=== PATIENT | male | born 1960 | race Caucasian/White ===

== ENCOUNTER 2017-09-03 20:52 | Emergency (ER) | payer BC ==
[2017-09-03] MEDS: NS 1,000 ML IV (21:03)
[2017-09-03] MEDS: ONDANSETRON 4MG/2ML VIAL (J2405) IV (21:03)
[2017-09-03] MEDS: MORPHINE 4 MG/ML 1ML VIAL/SYRINGE (J2270) IV ×2 (21:04→21:29)
[2017-09-03] MEDS: KETOROLAC 30 MG/ML VIAL (J1885) IV (21:05)
[2017-09-03 21:20] LABS: BASO # 0.1 10^3/uL (0.0-0.2); BASO % 0.6 % (0.0-1.0); EOS # 0.2 10^3/uL (0.0-0.50); EOS % 1.3 % (0.0-3.0); HEMATOCRIT 43.2 % (42.0-52.0); HEMOGLOBIN 15.2 g/dl (13.5-17.5); IMMATURE GRANULOCYTE % 0.3 % (0-3.0); LYMPH # 3.6 10^3/uL (1.5-4.5); LYMPH % 28.1 % (24.0-44.0); MEAN CORPUSCULAR HEMOGLOBIN 31.4 pg (27.0-33.0); MEAN CORPUSCULAR HGB CONC 35.2 g/dl (32.0-36.5); MEAN CORPUSCULAR VOLUME 89.3 fl (80.0-96.0); MONO # 1.3 10^3/uL (0.0-0.8); MONO % 9.8 % (0.0-5.0); NEUTROPHILS # 7.7 10^3/uL (1.8-7.7); NEUTROPHILS % 59.9 % (36.0-66.0); PLATELET COUNT, AUTOMATED 238 10^3/uL (150-450); RED BLOOD COUNT 4.84 10^6/uL (4.30-6.10); RED CELL DISTRIBUTION WIDTH 11.9 % (11.5-14.5); WHITE BLOOD COUNT 12.8 10^3/uL (4.0-10.0)
[2017-09-03 21:46] LABS: ALBUMIN/GLOBULIN RATIO 1.21 (1.00-1.93); ALKALINE PHOSPHATASE 100 U/L (45-117); ALT/SGPT 30 U/L (12-78); ANION GAP 11 MEQ/L (8-16); AST/SGOT 30 U/L (7-37); BILIRUBIN,DIRECT 0.2 MG/DL (0.0-0.2); BILIRUBIN,TOTAL 0.6 MG/DL (0.2-1.0); BLOOD UREA NITROGEN 26 MG/DL (7-18); CALCIUM LEVEL 8.9 MG/DL (8.5-10.1); CARBON DIOXIDE LEVEL 24 MEQ/L (21-32); CHLORIDE LEVEL 103 MEQ/L (98-107); CREATININE FOR GFR 1.46 MG/DL (0.70-1.30); GLOMERULAR FILTRATION RATE 53.6 (>56); GLUCOSE, FASTING 109 MG/DL (70-100); LIPASE 171 U/L (73-393); POTASSIUM SERUM 3.4 MEQ/L (3.5-5.1); SODIUM LEVEL 138 MEQ/L (136-145); TOTAL PROTEIN 7.3 GM/DL (6.4-8.2)
[2017-09-03 22:08] LABS: CALCIUM OXALATE CRYSTALS RFX SMALL; KETONE, URINE AUTO RFX 1+ mg/dL (NEGATIVE); LEUKOCYTE ESTERASE UR AUTO RFX NEGATIVE (NEGATIVE); MUCUS, URINE RFX SMALL (NEGATIVE); NITRITE, URINE AUTO RFX NEGATIVE (NEGATIVE); RBC, URINE AUTO RFX 2 /HPF (0-3); SPECIFIC GRAVITY UR AUTO RFX 1.026 (1.002-1.035); SQUAM EPITHELIAL CELL UR AURFX 0 /HPF (0-6); WBC, URINE AUTO RFX 1 /HPF (0-3)
[2017-09-03] MEDS: ONDANSETRON 4 MG TAB (S0181) PO (22:15)
[2017-09-03] MEDS: OXYCODONE/APAP 5MG/325MG(BULK FOR ED) 1 TABLET PO (22:32)
== END 2017-09-03 22:53 | disposition home or self-care (01) ==
LOC: M ED 20:52
DX: N20.1 Calculus of ureter (principal); R11.0 Nausea; G47.9 Sleep disorder, unspecified; Z91.040 Latex allergy status; Z79.899 Other long term (current) drug therapy
CPT/HCPCS: J2270

== ENCOUNTER → 2018-05-16 | Outpatient (CLI) | payer BC ==
[~2018-05-16] MED LIST: PERC5TAB12 PO; PERCOCET PO; SERT-138 PO; ZOFR4TAB14 PO
--- NOTE | 2018-05-16 13:46 | REP ---
Chest two views HISTORY: Cough Comparison: None The lungs are clear. The heart is normal in size. The pulmonary vasculature is normal in appearance. The bony structure is intact. IMPRESSION: No acute disease. Electronically Signed by Alfa Lynn MD 05/16/2018 01:38 P
== END ==
LOC: M RAD 11:31
PROVIDERS: ATTEND Emergency Medicine
DX: R05 Cough (principal)

== ENCOUNTER → 2020-05-11 | Outpatient (CLI) | payer BC | LOC: M LABSMTC 10:21 | PROVIDERS: ATTEND Anesthesiology | DX: Z20.828 Contact with and (suspected) exposure to other viral communicable diseases (principal) ==

== ENCOUNTER 2020-05-16 06:31 | Day surgery (SDC) | payer BC ==
[~2020-05-16] VITALS: Ht 182.9 cm; Wt 84.8 kg
[2020-05-16] MEDS ORDERED: POVIDONE-IODINE 5% OPHTH PREP SOL 30ML As Ordered ONE (06:35)
[2020-05-16] MEDS ORDERED: DUOVISC (0.50ML VISCOAT/0.55ML PROVISC) OPHTH KIT As Ordered ONE (06:36)
[2020-05-16] MEDS ORDERED: CEFUROXIME 1MG/0.1ML INTRACAMERAL INJ As Ordered ONE (06:36)
[2020-05-16] MEDS ORDERED: PROPARACAINE 0.5% OPHTH SOL 15ML OD ONE (07:00)
[2020-05-16] MEDS ORDERED: TROPICAMIDE 1% OPHTH SOLN 2ML OD ONE (07:00)
[2020-05-16] MEDS ORDERED: OFLOXACIN 0.3 % (OCUFLOX) OPTH SOL 5ML OD ONE (07:00)
[2020-05-16] MEDS ORDERED: PHENYLEPHRINE 2.5% OPHTH SOL 2ML OD ONE (07:00)
[2020-05-16] MEDS ORDERED: BSS IRR 500ML/OMIDRIA 4ML IRR BAG (OR ONLY) As Ordered ONE (07:29)
[2020-05-16] MEDS ORDERED: fentaNYL 100 MCG/2 ML INJECTION (J3010) As Ordered ONE (07:43)
[2020-05-16] MEDS ORDERED: MIDAZOLAM INJ 2MG/2ML VIAL (J2250 PER 1MG) As Ordered ONE (07:43)
[2020-05-16 08:20] VITALS: BP 121/68
--- NOTE | 2020-05-17 09:26 | RO ---
OPERATIVE NOTE DATE OF OPERATION: 05/16/2020 PREOPERATIVE DIAGNOSIS: 1. Visually significant nuclear sclerotic cataract, right eye. POSTOPERATIVE DIAGNOSIS: 1. Visually significant nuclear sclerotic cataract, right eye. PROCEDURE: 1. Cataract extraction with use of phacoemulsification, and placement of intraocular lens, TFNT00, 10.5 D, right eye, with the use of PanOptix trifocal lens and intraoperative aberrometry. SURGEON: Josse Lopez DO ANESTHESIA: Local (Omidria with MAC) COMPLICATIONS: None POSTOPERATIVE CONDITION: Stable INDICATIONS FOR SURGERY: 1. Blurred vision affecting patient's activities of daily living. DESCRIPTION OF PROCEDURE: The patient was seen in the preoperative area and properly identified. The correct operative eye was identified and marked. The patient received topical anesthetic, antibiotics, and topical dilating drops. The patient was then transferred to the operating room. The correct side was re-identified and a time-out was performed. The eye was prepped and draped in a sterile fashion. The eyelids were isolated with Tegaderm tape and the lids were held open with an adjustable speculum. A 1.0mm paracentesis incision was made. Omidria was then injected into the anterior chamber. Viscoelastic was then injected into the anterior chamber through the paracentesis. Using a 2.4mm sharp-tipped keratome, the anterior chamber was entered via a temporal clear cornea incision. A continuous curvilinear capsulorrhexis was created with Utrata forceps. Hydrodissection was performed with BSS on a blunt cannula until the nucleus was able to rotate freely. The crystalline lens was phacoemulsified and aspirated. Irrigation/aspiration was used to remove the cortical material Cohesive viscoelastic was placed into the capsular bag to deepen it. The implant was placed into the capsular bag and allowed to unfold. Placement was confirmed by visualizing the anterior capsulorrhexis. Irrigation/aspiration was used to remove the viscoelastic. The clear corneal incision was hydrated with BSS on a blunt cannula. The lens was well positioned. Intracameral antibiotic was injected into the anterior chamber. The incisions were then tested for leaks and found to be negative. The eye was then palpated for appropriate pressure and adjusted accordingly with BSS. The eyelid speculum was then carefully removed. A shield was placed over the eye. The patient tolerated the procedure well and was discharge to the recovery unit in a stable condition.
== END 2020-05-16 08:24 | disposition home or self-care (01) ==
LOC: M SDC 06:31
PROVIDERS: ATTEND Ophthalmology
DX: H25.11 Age-related nuclear cataract, right eye (principal); F32.9 Major depressive disorder, single episode, unspecified; Z79.899 Other long term (current) drug therapy; Z91.040 Latex allergy status
CPT/HCPCS: 66984; 92015; J1097; J2250; J3010; L8699

== ENCOUNTER → 2020-06-08 | Outpatient (CLI) | payer BC ==
[~2020-06-08] MED LIST changes: +ZOLO100T PO
== END ==
LOC: M LABSMTC 11:48
PROVIDERS: ATTEND Anesthesiology
DX: Z01.812 Encounter for preprocedural laboratory examination (principal); Z20.822 Contact with and (suspected) exposure to COVID-19

== ENCOUNTER 2020-06-13 06:20 | Day surgery (SDC) | payer BC ==
[~2020-06-13] VITALS: Ht 182.9 cm; Wt 81.6 kg
[2020-06-13] MEDS ORDERED: POVIDONE-IODINE 5% OPHTH PREP SOL 30ML As Ordered ONE (06:39)
[2020-06-13] MEDS ORDERED: DUOVISC (0.50ML VISCOAT/0.55ML PROVISC) OPHTH KIT As Ordered ONE ×2 (06:39→08:24)
[2020-06-13] MEDS ORDERED: CEFUROXIME 1MG/0.1ML INTRACAMERAL INJ As Ordered ONE (06:40)
[2020-06-13] MEDS ORDERED: TROPICAMIDE 1% OPHTH SOLN 2ML OS ONE (07:00)
[2020-06-13] MEDS ORDERED: PROPARACAINE 0.5% OPHTH SOL 15ML OS ONE (07:00)
[2020-06-13] MEDS ORDERED: OFLOXACIN 0.3 % (OCUFLOX) OPTH SOL 5ML OS ONE (07:00)
[2020-06-13] MEDS ORDERED: PHENYLEPHRINE 2.5% OPHTH SOL 2ML OS ONE (07:00)
[2020-06-13] MEDS ORDERED: fentaNYL 100 MCG/2 ML INJECTION (J3010) As Ordered ONE (07:09)
[2020-06-13] MEDS ORDERED: MIDAZOLAM INJ 2MG/2ML VIAL (J2250 PER 1MG) As Ordered ONE (07:10)
[2020-06-13] MEDS ORDERED: BSS IRR 500ML/OMIDRIA 4ML IRR BAG (OR ONLY) As Ordered ONE (07:19)
[2020-06-13 08:55] VITALS: BP 143/73
== END 2020-06-13 09:13 | disposition home or self-care (01) ==
LOC: M SDC 06:20
PROVIDERS: ATTEND Ophthalmology
DX: H25.12 Age-related nuclear cataract, left eye (principal); F32.9 Major depressive disorder, single episode, unspecified; Z79.899 Other long term (current) drug therapy; Z91.040 Latex allergy status
CPT/HCPCS: 66984; 92015; J1097; J2250; J3010; L8699

== ENCOUNTER 2020-06-26 19:12 | Inpatient (IN) | payer BC ==
[~2020-06-26] VITALS: Ht 182.9 cm; Wt 84.0 kg
[2020-06-26 19:48] LABS: VENOUS BASE EXCESS -1.5 (-2.0-2.0); VENOUS HCO3 23.5 MEQ/L (23.0-27.0); VENOUS O2 SATURATION 73.9 % (60.0-80.0); VENOUS PARTIAL PRESSURE CO2 40.9 mmHg (38.0-50.0); VENOUS PARTIAL PRESSURE O2 40.1 mmHg (30.0-50.0); VENOUS PH 7.378 UNITS (7.330-7.430); VENOUS STANDARD HCO3 22.6 MEQ/L; VENOUS TOTAL CO2 24.8 MEQ/L (24.0-28.0)
[2020-06-26 19:51] LABS: BASO % 0.3 % (0.0-1.0); EOS # 0.2 10^3/uL (0.0-0.5); EOS % 1.6 % (0.0-3.0); HEMATOCRIT 45.3 % (42.0-52.0); HEMOGLOBIN 15.6 g/dl (13.5-17.5); LYMPH # 1.4 10^3/uL (1.5-5.0); LYMPH % 11.7 % (24.0-44.0); MEAN CORPUSCULAR HEMOGLOBIN 31.5 pg (27.0-33.0); MEAN CORPUSCULAR HGB CONC 34.4 g/dl (32.0-36.5); MEAN CORPUSCULAR VOLUME 91.3 fl (80.0-96.0); MONO % 8.5 % (2.0-8.0); NEUTROPHILS # 9.4 10^3/uL (1.5-8.5); NEUTROPHILS % 77.6 % (36.0-66.0); PLATELET COUNT, AUTOMATED 198 10^3/uL (150-450); RED BLOOD COUNT 4.96 10^6/uL (4.30-6.10); WHITE BLOOD COUNT 12.1 10^3/uL (4.0-10.0)
[2020-06-26 20:02] LABS: PROTHROMBIN TIME 13.4 SECONDS (12.5-14.3)
[2020-06-26 20:18] LABS: ALBUMIN 3.6 GM/DL (3.2-5.2); ALT/SGPT 23 U/L (12-78); BILIRUBIN,DIRECT 0.2 MG/DL (0.0-0.2); BILIRUBIN,TOTAL 0.4 MG/DL (0.2-1.0); BLOOD UREA NITROGEN 23 MG/DL (7-18); CALCIUM LEVEL 8.8 MG/DL (8.5-10.1); CARBON DIOXIDE LEVEL 28 MEQ/L (21-32); CHLORIDE LEVEL 105 MEQ/L (98-107); CK-MB VALUE MASS 2.8 NG/ML (<3.6); CPK CREATINE PHOSPHOKINASE 102 U/L (39-308); CREATININE FOR GFR 1.14 MG/DL (0.70-1.30); GLOMERULAR FILTRATION RATE > 60.0 (>56); GLUCOSE, FASTING 117 MG/DL (70-100); MB/CK RELATIVE INDEX 2.75 (< OR =4); NT-PRO BNP 717 PG/ML (<125); POTASSIUM SERUM 3.7 MEQ/L (3.5-5.1); SODIUM LEVEL 139 MEQ/L (136-145); TOTAL PROTEIN 7.4 GM/DL (6.4-8.2); TROPONIN I 0.16 NG/ML (< 0.10)
[2020-06-26 20:30] LABS: D-DIMER QUANT > 4000 ng/ml (<500)
--- NOTE | 2020-06-26 20:30 | REPVR ---
PROCEDURE INFORMATION: Exam: XR Chest Exam date and time: 06/26/2020 7:50 PM Age: 59 years old Clinical indication: Cough; Additional info: Dyspnea/cough TECHNIQUE: Imaging protocol: XR of the chest Views: 2 views. COMPARISON: CR Chest, 2 view PA, Lat 05/16/2018 11:37 AM FINDINGS: Lungs: Unremarkable. No consolidation. Pleural spaces: Unremarkable. No pleural effusion. No pneumothorax. Heart/Mediastinum: Unremarkable. No cardiomegaly. Bones/joints: Unremarkable. IMPRESSION: No acute findings. Electronically signed by: Uche Elizabeth On 06/26/2020 20:30:16 PM
[2020-06-26] MEDS: COMBIVENT RESPIMAT 100-20MCG INHALER 4GM INH SCH ×3 (20:43→21:20)
[2020-06-26 20:50] LABS: RSV AMPLIFICATION NEGATIVE (NEGATIVE)
[2020-06-26] MEDS ORDERED: ISOVUE-370 76% 100ML VIAL As Ordered ONE (21:08)
[2020-06-26] MEDS ORDERED: APIXABAN 5 MG TAB (ELIQUIS) PO ONE (21:35)
[2020-06-26] MEDS ORDERED: ENOXAPARIN 100MG/1ML SYRINGE (J1650 PER 10MG) SC ONE (21:35)
--- NOTE | 2020-06-26 21:39 | REPVR ---
PROCEDURE INFORMATION: Exam: CT Angiography Chest With Contrast Exam date and time: 06/26/2020 9:18 PM Age: 59 years old Clinical indication: Shortness of breath; Additional info: SOB TECHNIQUE: Imaging protocol: Computed tomographic angiography of the chest with contrast. 3D rendering (Not supervised by radiologist): MIP and/or 3D reconstructed images were created by the technologist. Radiation optimization: All CT scans at this facility use at least one of these dose optimization techniques: automated exposure control; mA and/or kV adjustment per patient size (includes targeted exams where dose is matched to clinical indication); or iterative reconstruction. Contrast material: [id number]; Contrast volume: 75 ml; Contrast route: INTRAVENOUS (IV); COMPARISON: CR Chest, 2 view PA, Lat 06/26/2020 7:38 PM FINDINGS: Pulmonary arteries: Filling defect in bilateral lower lobe segmental and subsegmental pulmonary arteries and in the multiple right upper lobe and 1 of the left upper lobe segmental pulmonary artery representing acute pulmonary embolism. Straightening of the interventricular septum suggestive of pulmonary strain. Aorta: Unremarkable. No aortic aneurysm. No aortic dissection. Lungs: Unremarkable. No consolidation. No masses. Pleural spaces: Unremarkable. No pneumothorax. No pleural effusion. Heart: Unremarkable. No cardiomegaly. No pericardial effusion. Lymph nodes: Unremarkable. No enlarged lymph nodes. Bones/joints: Unremarkable. No acute fracture. Soft tissues: Unremarkable. IMPRESSION: Acute pulmonary embolism multiple bilateral upper lobe and lower lobe segmental and subsegmental pulmonary arteries. Straightening of the interventricular septum suggestive of ventricular strain. Electronically signed by: Uche Elizabeth On 06/26/2020 21:39:23 PM
[2020-06-26 21:48] LABS: PARTIAL THROMBOPLASTIN TIME 29.5 SECONDS (24.2-38.5)
[2020-06-26] MEDS ORDERED: MOM 30ML SUSPENSION UDC PO PRN (22:05)
[2020-06-26] MEDS ORDERED: MAALOX 30 ML SUSP *UDC PO PRN (22:05)
[2020-06-26] MEDS ORDERED: ACETAMINOPHEN TAB 650MG DOSE (2X325MG) PO PRN (22:05)
[2020-06-26] MEDS ORDERED: LOTE8.3D OS (22:30)
[2020-06-26] MEDS ORDERED: BROM0.07 OS (22:30)
--- NOTE | 2020-06-26 22:44 | REPVR ---
PROCEDURE INFORMATION: Exam: US Duplex Lower Extremity Veins, Bilateral Exam date and time: 06/26/2020 10:30 PM Age: 59 years old Clinical indication: Other: Pe, SOB TECHNIQUE: Imaging protocol: Real-time duplex ultrasound of the extremities with 2-D baez scale, color Doppler flow and spectral waveform analysis with image documentation. Complete exam focused on the bilateral lower extremity veins. COMPARISON: No relevant prior studies available. FINDINGS: Right deep veins: No flow in the femoral vein common femoral vein partially occluded. Popliteal vein has normal compressibility and flow. Right superficial veins: Saphenofemoral junction is patent without thrombus. Left deep veins: Unremarkable. The common femoral, femoral, proximal profunda femoral and popliteal veins are patent without thrombus. Normal Doppler waveforms. Normal compressibility and/or augmentation response. Left superficial veins: Saphenofemoral junction is patent without thrombus. Soft tissues: Unremarkable. IMPRESSION: Right: DVT of the right common femoral and femoral vein. Left: Unremarkable. Electronically signed by: Uche Elizabeth On 06/26/2020 22:44:05 PM
[2020-06-26 23:46] LABS: CREATININE FOR GFR 1.11 MG/DL (0.70-1.30); GLOMERULAR FILTRATION RATE > 60.0 (>56); NT-PRO BNP 795 PG/ML (<125)
--- NOTE | 2020-06-26 23:59 | HPEPDOC ---
[facility] Medical History & Physical Date of Admission Jun 26, 2020 Date of Service: Jun 26, 2020 Other Provider Keanu Yoder MD Attending Physician: CAROLINA ROWLAND MD History and Physical TIME OF SERVICE: 1038pm CHIEF COMPLAINT: dyspnea HISTORY OF PRESENT ILLNESS: For the last 3 or 4 weeks has been experiencing shortness of breath off and on. It was though that he might have reactive air way disease, therefore, he was referred to [facility] for evaluation. Over the last 2 or 3 weeks he noticed right leg swelling which he attributed to an old injury acting up. He is normally very active and runs marathons but over the last 2 days his shortness of breath has been much worse to the point that he has had difficulties moving boxes. He has a portable pulse oximeter; he put it on to check his O2 sats and noticed that they dropped while he was climbing stairs. CT of the chest confirmed bilateral PE with flattening of the intraventricular septum. BENITA Bryant discussed the case with Drs. Anderson & Kelvin (bc of the elevated troponin). REVIEW OF SYSTEMS: 12-point review of systems negative except as listed in HPI PAST MEDICAL/ SURGICAL HISTORY: Chronic HTN Bilateral cataract surgeries SOCIAL HISTORY: He doesnt smoke FAMILY HISTORY: Reviewed n/a ALLERGIES: Please see below. HOME MEDICATIONS: Please see below. PHYSICAL EXAMINATION: Vital Signs Date Time Temp Pulse Resp B/P (MAP) Pulse Ox O2 Delivery O2 Flow Rate FiO2 06/26/20 19:14 97.8 76 18 150/90 (110) 96 Room Air GENERAL APPEARANCE: well nourished and developed /NAD HEENT: EOMI CARDIOVASCULAR: RRR/NMRG / no LE edema LUNGS: not using accessory muscles/ CTAB on RA MUSCULOSKELETAL: JAMES x4 / RLE looks slightly larger than LLE INTEGUMENT: extremities not cyanotic NEUROLOGICAL: speech not dysarthric PSYCHIATRIC: A&O x 3 / able to understand and follow all commands LABORATORY DATA: 06/26/20 19:39 06/26/20 23:07 Immature Granulocyte % (Auto) 0.3, Neutrophils (%) (Auto) 77.6H, Lymphocytes (%) (Auto) 11.7L, Monocytes (%) (Auto) 8.5H, Eosinophils (%) (Auto) 1.6, Basophils (%) (Auto) 0.3, Neutrophils # (Auto) 9.4H, Lymphocytes # (Auto) 1.4L, Monocytes # (Auto) 1.0H, Eosinophils # (Auto) 0.2, Basophils # (Auto) 0.0, Nucleated Red Blood Cells % (auto) 0.0, Prothrombin Time 13.4, Prothromb Time International Ratio 1.00, Activated Partial Thromboplast Time 29.5, D-Dimer, Quantitative > 4000H, Blood Gas Bicarbonate Standard 22.6, Venous Blood pH 7.378, Venous Blood Partial Pressure CO2 40.9, Venous Blood Partial Pressure O2 40.1, Venous Blood Total Carbon Dioxide 24.8, Venous Blood HCO3 23.5, Venous Blood Oxygen Saturation 73.9, Venous Blood Base Excess -1.5, Anion Gap 6L, Glomerular Filtration Rate > 60.0, Calcium Level 8.8, Total Bilirubin 0.4, Direct Bilirubin 0.2, Aspartate Amino Transf (AST/SGOT) 18, Alanine Aminotransferase (ALT/SGPT) 23, Alkaline Phosphatase 130H, Total Creatine Kinase 102, Creatine Kinase MB 2.8, Creatine Kinase MB Relative Index 2.75, Troponin I 0.16H, RY-Ilx-M-Type Natriuretic Peptide 717H, Total Protein 7.4, Albumin 3.6, Albumin/Globulin Ratio 0.9, Glomerular Filtration Rate > 60.0, KE-Mno-I-Type Natriuretic Peptide 795H IMAGING: Chest xray IMPRESSION: No acute findings. CTA chest IMPRESSION: Acute pulmonary embolism multiple bilateral upper lobe and lower lobe segmental and subsegmental pulmonary arteries. Straightening of the interventricular septum suggestive of ventricular strain. BLE US IMPRESSION: Right: DVT of the right common femoral and femoral vein. Left: Unremarkable. MICROBIOLOGY: Coronavirus (COVID-19)(PCR) NEGATIVE, Influenza Type A (RT-PCR) NEGATIVE, Influenza Type B (RT-PCR) NEGATIVE, Respiratory Syncytial Virus (PCR) NEGATIVE ASSESSMENT: is a 59 yr old w a hx of HTN who presented w acute worsening of his shortness of breath along with RLE swelling; he will be admitted for management of submassive PE. PLAN: 1 Submassive Pulmonary Embolism with RLE DVT This appears to be unprovoked He is hemodynamically stable but also has right ventricular strain on CT specifically flattening of the intraventricular septum, elevated BNP and elevated troponin His ADINA Score is 4 = stage 2 = intermediate risk for complications and mortality Plan: bc his ADINA score is 4 we will admit to step down for closer monitoring / telemetry / bc he has a submassive PE he is not a candidate for a DOAC, I will start heparin drip for now/ pending Echo to confirm that the RV/LV ratio is >0.9 / f/u w , the day time team may also consider IR consult to discuss if he is candidate for thrombolysis to / trend trops / f/u VBG / he may need an ambulatory O2 eval prior to discharge / he will need to be referred to [facility] on an out patient basis to complete the hypercoagulable work-up 2 Mild HTN Plan: day time team may consider starting an anti-hypertensive DVT n/a on treatment Dispo: home after at least 2 midnights stay Home Medications Scheduled Apixaban (Eliquis) 5 Mg Tablet, 10 MG PO BID Apixaban (Eliquis) 5 Mg Tablet, 5 MG PO BID Start taking 5 mg twice a day of eliquis after 7 days of 10 mg twice a day of Eliquis Bromfenac Sodium (Bromsite) 0.075% 5ML Drops, 1 DROP OS BID Loteprednol Etabonate (Eysuvis) 0.25 % Drops.susp, 1 DROP OS BID Sertraline Hcl (Zoloft) 100 Mg Tablet, 150 MG PO DAILY Allergies Coded Allergies: latex (Verified Allergy, Intermediate, RASH LOCALIZED, 05/09/20) A-FIB/CHADSVASC A-FIB History Current/History of A-Fib/PAF?: No Current PO Anticoag Therapy: No CAROLINA ROWLAND MD Jun 26, 2020 23:59
[2020-06-27] VITALS (15 sets, daily range): BP systolic 109–141; BP diastolic 62–82; O2SAT 93–96
[2020-06-27] MEDS ORDERED: HEPARIN DRIP 25,000 UNITS in IV 1 EA IV SCH (02:24)
[2020-06-27] MEDS ORDERED: HEPARIN SOD (PORCINE) 5000UNITS/ML 1ML VIAL/SYRINGE IV PRN (02:25)
[2020-06-27] MEDS ORDERED: HEPARIN SOD (PORCINE) 5000UNITS/ML 1ML VIAL/SYRINGE IV ONE (02:25)
[2020-06-27 06:23] LABS: HEMATOCRIT 41.3 % (42.0-52.0); HEMOGLOBIN 14.1 g/dl (13.5-17.5); MEAN CORPUSCULAR HEMOGLOBIN 31.6 pg (27.0-33.0); MEAN CORPUSCULAR HGB CONC 34.1 g/dl (32.0-36.5); MEAN CORPUSCULAR VOLUME 92.6 fl (80.0-96.0); PLATELET COUNT, AUTOMATED 172 10^3/uL (150-450); RED BLOOD COUNT 4.46 10^6/uL (4.30-6.10); WHITE BLOOD COUNT 8.9 10^3/uL (4.0-10.0)
[2020-06-27 07:09] LABS: BLOOD UREA NITROGEN 24 MG/DL (7-18); CALCIUM LEVEL 8.4 MG/DL (8.5-10.1); CARBON DIOXIDE LEVEL 28 MEQ/L (21-32); CHLORIDE LEVEL 105 MEQ/L (98-107); CREATININE FOR GFR 1.15 MG/DL (0.70-1.30); GLOMERULAR FILTRATION RATE > 60.0 (>56); GLUCOSE, FASTING 111 MG/DL (70-100); POTASSIUM SERUM 4.3 MEQ/L (3.5-5.1); SODIUM LEVEL 139 MEQ/L (136-145)
[2020-06-27] MEDS: LOTEPREDNOL OS SCH ×2 (10:00→21:26)
[2020-06-27] MEDS: BROMFENAC 0.075% OS SCH ×2 (10:00→21:26)
[2020-06-27] MEDS: SERTRALINE 100 MG TAB PO SCH (10:09)
[2020-06-27 10:44] LABS: TROPONIN I 0.13 NG/ML (< 0.10)
[2020-06-27 10:52] LABS: VENOUS BASE EXCESS -0.1 (-2.0-2.0); VENOUS O2 SATURATION 87.8 % (60.0-80.0); VENOUS PARTIAL PRESSURE CO2 42.3 mmHg (38.0-50.0); VENOUS PARTIAL PRESSURE O2 51.6 mmHg (30.0-50.0); VENOUS PH 7.389 UNITS (7.330-7.430); VENOUS STANDARD HCO3 24.1 MEQ/L; VENOUS TOTAL CO2 26.3 MEQ/L (24.0-28.0)
--- NOTE | 2020-06-27 11:53 | IPNPDOC ---
Text Note Date of Service The patient was seen on 06/27/20. NOTE Mr. Denton was seen and examined this morning. He appears to be in no acute dis tress. Saturating well on room air on heparin drip for his PE and DVT Physical examination GENERAL APPEARANCE: well nourished and developed HEENT: EOMI CARDIOVASCULAR: RRR/NMRG / no LE edema LUNGS: not using accessory muscles/ CTAB on RA MUSCULOSKELETAL: JAMES x4 / RLE looks slightly larger than LLE INTEGUMENT: extremities not cyanotic NEUROLOGICAL: speech not dysarthric PSYCHIATRIC: A&O x 3 / able to understand and follow all commands IMAGING: CTA chest IMPRESSION: Acute pulmonary embolism multiple bilateral upper lobe and lower lobe segmental and subsegmental pulmonary arteries. Straightening of the interventricular septum suggestive of ventricular strain. BLE US IMPRESSION: Right: DVT of the right common femoral and femoral vein. Left: Unremarkable. Assessment and plan is a 59 yr old w a hx of HTN who presented w acute worsening of his shortness of breath along with RLE swelling; he will be admitted for management of PE. 1 Pulmonary Embolism with RLE DVT. Seems like to be provoked secondary to the occupational requiring long durations of sitting at one place. He would benefit from outpatient workup of any cardiac reasons and I would suggest getting a fecal occult blood, a screening colonoscopy and a follow-up with PCP to see if there is any other reason of doing a hypercoagulable workup. He had mild elevated troponins with a flat trend, but echo and on office. She will read did not show any strain pattern. His telemetry is also uneventful with the 2 episodes of bradycardia which is sinus bradycardia. Discussion was done regarding the anticoagulation and he would be put on Eliquis 10 mg twice a day for 7 days and then 5 mg twice a day for the first 6 months and then determination will be made if we need to continue that and accommodation are not. Regarding switching his anti-cognition from heparin to Eliquis. It has been decided that from tonight. He'll be getting 10 twice a day of Eliquis after the heparin is switched off. Disposition is likely home in the next 24 hours. VS,Fishbone, I+O VS, Fishbone, I+O Laboratory Tests 06/26/20 19:39 06/26/20 23:07 06/27/20 05:53 Vital Signs Date Time Temp Pulse Resp B/P (MAP) Pulse Ox O2 Delivery O2 Flow Rate FiO2 06/27/20 07:41 97.3 69 18 121/77 (92) 100 Room Air I&O- Last 24 Hours up to 6 AM 06/27/20 06:00 Intake Total 0 ml Balance 0 ml FELI GARCIA MD Jun 27, 2020 11:52
[2020-06-27] MEDS ORDERED: ELIQ5TAB PO (13:06)
--- NOTE | 2020-06-27 15:12 | ECHO ---
DATE OF PROCEDURE: 06/27/2020 Age: 59 Gender: Male Height: 183 cm Weight: 86 kg REFERRING PHYSICIAN: Glenny Ramirez MD INDICATION: Dyspnea, submassive pulmonary embolism. MEASUREMENTS: 2D Measurements: Left atrium 4.1 cm Left atrial volume index 33 cm Intraventricular septum 1.07 cm Posterior wall 1.07 cm Left ventricle diastole 4.5 cm Aortic root 3.4 cm Aortic annulus 2.1 cm Proximal ascending aorta 3.85 cm Right ventricle 4.5 cm Doppler Measurements: No aortic stenosis No aortic regurgitation Aortic valve velocity 136 cm/s LVOT velocity 131 cm/s LVOT VTI 23.2 cm Trace mitral regurgitation No mitral stenosis Mitral E velocity 75.0 cm/s Mitral A velocity 84.4 cm/s Mitral deceleration time 185 msec Very mild tricuspid regurgitation Estimated right ventricular systolic pressure 57 mmHg Estimated right atrial pressure 10 mmHg Mild pulmonic regurgitation Pulmonary artery acceleration time 98 msec MITRAL ANNULAR TISSUE DOPPLER E prime septal 7.4 cm/s, E prime lateral 7.7 cm/s DESCRIPTION: Rhythm was sinus. Image quality was good. This was a 2D, M-mode, color flow Doppler, and pulsed wave Doppler examination including mitral annular tissue Doppler. Inferior vena cava diameter 1.5 cm with approximately 50% respiratory variation. CVP estimated to be 10 mmHg. CONCLUSIONS: 1. Suggestive of moderately-severe elevation of estimated right ventricle systolic pressure (57 mmHg). Mild right ventricle dilatation with normal RV systolic function. TAPSE 2.1 cm (normal). Moderate right atrial dilatation by visual assessment. Normal right ventricular wall thickness. Partial flattening of the right ventricle in systole in keeping with pressure overload of the right ventricle. 2. Normal left ventricle internal dimensions and wall thickness. Normal regional LV wall motion and wall thickening. Normal LV systolic function. LVEF 60% by visual estimate. Normal peak longitudinal straining pattern of the right ventricle. Grade 1 LV diastolic dysfunction (impaired relaxation filling pattern). 3. Mild left atrial dilatation by left atrial volume index. 4. Mild dilatation of the proximal ascending aorta (3.85 cm). 5. Otherwise normal appearing echocardiogram Doppler findings. Results of this study were communicated to Dr. Glenny Ramirez by voice Vocera text message at 11 o'clock a.m. on 06/27/2020. [facility]OSPITALGarima
--- NOTE | 2020-06-27 19:54 | ECGEPIP ---
[facility] - ED Test Date: 2020-06-26 Pat Name: LILI SIMMONS Department: Room: [place] [address] Gender: Male [employer] Operator: STAR : 1960 Requested By: KAMARI SWAN Order Number: [id number] Reading MD: Keshia Hopper Measurements Intervals [place] Rate: 67 P: 58 VA: 242 QRS: -23 QRSD: 90 T: 29 QT: 422 QTc: 445 Interpretive Statements Sinus rhythm with 1st degree AV block NSTTW abnormalities, clinical correlation Possible Left atrial enlargement Minimal voltage criteria for LVH, may be normal variant ( [place] product ) Electronically Signed on 06-27-2020 19:54:22 EDT by Keshia Hopper
[2020-06-27] MEDS: APIXABAN 5 MG TAB (ELIQUIS) PO SCH (21:26)
[2020-06-28] VITALS (15 sets, daily range): BP systolic 118–144; BP diastolic 67–84; O2SAT 92–97
[2020-06-28] MEDS: APIXABAN 5 MG TAB (ELIQUIS) PO SCH (08:03)
[2020-06-28] MEDS: BROMFENAC 0.075% OS SCH (08:03)
[2020-06-28] MEDS: LOTEPREDNOL OS SCH (08:03)
[2020-06-28] MEDS: SERTRALINE 100 MG TAB PO SCH (08:03)
--- NOTE | 2020-06-28 10:54 | DS.PDOC ---
Discharge Summary General Date of Admission Jun 26, 2020 at 22:05 Date of Discharge 06/28/20 Discharge Summary Chief complaints: Shortness of breath Final diagnosis Pulmonary embolism DVT History of present illness and hospital course is a 59 yr old w a hx of HTN who presented w acute worsening of his shortness of breath along with RLE swelling; he will be admitted for management of PE and DVT and was started on anticoagulation with IV heparin. For his Pulmonary Embolism with RLE DVT. Seems like to be provoked secondary to the occ upation, requiring long durations of sitting at one place. He would benefit from outpatient workup of any hypercoagulable conditions and I have suggested him getting a fecal occult blood, a screening colonoscopy and a follow-up with PCP to see if there is any other reason of doing a hypercoagulable workup. He had mild elevated troponins with a flat trend, an echo was done which did show that the PA pressures were high without any right ventricular strain pattern. His telemetry is also uneventful with the 2 episodes of bradycardia which is sinus bradycardia. Discussion was done regarding the anticoagulation and all dressed and benefits were explained to him in detail and he would be put on Eliquis 10 mg twice a day for 7 days and then 5 mg twice a day for the first 6 months and then determination will be made if we need to continue that . Regarding switching his anti-cognition from heparin to Eliquis. It has been decided that from tonight. Physical examination GENERAL APPEARANCE: well nourished and developed HEENT: EOMI CARDIOVASCULAR: RRR/NMRG / no LE edema LUNGS: not using accessory muscles/ CTAB on RA MUSCULOSKELETAL: JAMES x4 / RLE looks slightly larger than LLE INTEGUMENT: extremities not cyanotic NEUROLOGICAL: speech not dysarthric PSYCHIATRIC: A&O x 3 / able to understand and follow all commands CTA chest IMPRESSION: Acute pulmonary embolism multiple bilateral upper lobe and lower lobe segmental and subsegmental pulmonary arteries. Straightening of the interventricular septum suggestive of ventricular strain. BLE US IMPRESSION: Right: DVT of the right common femoral and femoral vein. Left: Unremarkable. Medictations. As per discharge reconciliation medication list. Romero has been admitted to the discharge medications Activity as tolerated Diet. 2 g sodium diet Follow-up appointments. PCP in 1 week. Pulmonary in 4 weeks Condition on discharge. Patient is medically optimized for discharge Discharge disposition: Home Total time spent on this discharge including coordination of care, review of chart documentation and actual patient contact is around 35 minutes Vital Signs/I&Os Vital Signs Date Time Temp Pulse Resp B/P (MAP) Pulse Ox O2 Delivery O2 Flow Rate FiO2 06/28/20 10:00 97 Room Air 06/28/20 07:30 97.1 60 18 118/67 (84) I&O- Last 24 Hours up to 6 AM 06/28/20 05:59 Intake Total 1274 ml Balance 1274 ml Laboratory Data Labs 24H Laboratory Tests 2 06/27/20 15:04: Activated Partial Thromboplast Time 68.2H Discharge Medications Scheduled Apixaban (Eliquis) 5 Mg Tablet, 10 MG PO BID Apixaban (Eliquis) 5 Mg Tablet, 5 MG PO BID Start taking 5 mg twice a day of eliquis after 7 days of 10 mg twice a day of Eliquis Bromfenac Sodium (Bromsite) 0.075% 5ML Drops, 1 DROP OS BID, (Reported) Loteprednol Etabonate (Eysuvis) 0.25 % Drops.susp, 1 DROP OS BID, (Reported) Sertraline Hcl (Zoloft) 100 Mg Tablet, 150 MG PO DAILY, (Reported) Allergies Coded Allergies: latex (Verified Allergy, Intermediate, RASH LOCALIZED, 05/09/20) FELI GARCIA MD Jun 28, 2020 10:54
[2020-06-29 10:30] LABS: PTT LUPUS TYPE ANTICOAG SCREEN 0.8 (0-1.2)
== END 2020-06-28 12:51 | disposition home or self-care (01) | DRG 197 ==
LOC: M ED 19:12 → M ED INP 22:05 → M PCU 06-27 00:39
PROVIDERS: ADMIT Internal Medicine; ATTEND Internal Medicine
DX: I82.411 Acute embolism and thrombosis of right femoral vein (principal); I26.99 Other pulmonary embolism without acute cor pulmonale; I10 Essential (primary) hypertension; Z98.41 Cataract extraction status, right eye; Z98.42 Cataract extraction status, left eye; Z20.822 Contact with and (suspected) exposure to COVID-19; Z79.899 Other long term (current) drug therapy; Z91.040 Latex allergy status

== ENCOUNTER → 2020-10-05 | Outpatient (CLI) | payer BC ==
[~2020-10-05] MED LIST changes: +BROM0.07 OS; +ELIQ5TAB PO; +LOTE8.3D OS
--- NOTE | 2020-10-06 10:08 | ECHO ---
ECHOCARDIOGRAM DATE OF PROCEDURE: 10/05/2020 Age: 59 Gender: Height: 180 cm Weight: 84 kg REFERRING PROVIDER: Dr. Sourav Anderson. PATIENT LOCATION: Outpatient. REASON FOR THE ECHOCARDIOGRAM: History of pulmonary embolism. 2D MEASUREMENTS: IVS 1.1 cm LV 4.6 cm LVPW 1.1 cm LA 4.2 cm Aorta 3.3 cm IVC 1.4 cm DOPPLER MEASUREMENT Peak velocity across the LVOT 1.3 m/s Mitral E 0.7 Mitral A 0.6 with a ratio of 1.1 2D COMMENTS: 1. Normal left ventricular size, wall thickness, and a normal global left ventricular systolic function with an estimated LVEF of 65 to 70%. 2. Mildly dilated left atrium at 4.2 cm. The right atrium appeared to be mildly enlarged. The right ventricle appeared to be normal in size and with normal function. 3. The atrial septum appeared to be normal without evidence of defect or shunt. 4. Normal aortic root. 5. No pericardial effusion seen. 6. Minimally calcified aortic valve with normal leaflet excursion. Minimally calcified mitral annulus with normal anterior mitral valve leaflet motion. Normal tricuspid valve and pulmonic valve. The proximal pulmonary artery branches also appear to be normal in size. 7. The inferior vena cava was normal in size, central venous pressure is most likely normal. DOPPLER: It detects trace mitral regurgitation, trace tricuspid regurgitation, and trace pulmonic regurgitation. Pulmonary artery systolic pressure is probably normal. IMPRESSION: 1. Normal global left ventricular systolic function with a hyperdynamic left ventricle. Assessment of the left ventricular diastolic function appeared to be normal. 2. Aortic valve sclerosis without stenosis or aortic regurgitation. 3. Mitral annulus calcification with trace mitral regurgitation. 4. Trace tricuspid regurgitation with probably normal global left ventricular systolic function. The right atrium appeared to be mildly enlarged. 5. Trace pulmonic regurgitation. 6. This study was compared with the most recent study on 06/27/2020, and at that time, both the right atrium and the right ventricle were enlarged, and there was at least moderate pulmonary hypertension.
== END ==
LOC: M CARPUL 07:38
PROVIDERS: ATTEND Internal Medicine Pulmonary Disease
DX: I26.09 Other pulmonary embolism with acute cor pulmonale (principal)

== ENCOUNTER → 2021-01-18 | Outpatient (CLI) | payer BC ==
[2021-01-18 13:09] LABS: HEMATOCRIT 46.6 % (42.0-52.0); MEAN CORPUSCULAR HGB CONC 34.3 g/dl (32.0-36.5); MEAN CORPUSCULAR VOLUME 93.2 fl (80.0-96.0); PLATELET COUNT, AUTOMATED 256 10^3/uL (150-450); WHITE BLOOD COUNT 6.8 10^3/uL (4.0-10.0)
[2021-01-18 13:50] LABS: ALBUMIN 3.9 GM/DL (3.2-5.2); ALT/SGPT 27 U/L (12-78); BILIRUBIN,TOTAL 0.6 MG/DL (0.2-1.0); BLOOD UREA NITROGEN 22 MG/DL (7-18); CALCIUM LEVEL 8.8 MG/DL (8.5-10.1); CARBON DIOXIDE LEVEL 30 MEQ/L (21-32); CHLORIDE LEVEL 102 MEQ/L (98-107); CREATININE FOR GFR 1.15 MG/DL (0.70-1.30); GLOMERULAR FILTRATION RATE > 60.0 (>56); GLUCOSE, FASTING 79 MG/DL (70-100); POTASSIUM SERUM 4.7 MEQ/L (3.5-5.1); SODIUM LEVEL 137 MEQ/L (136-145); TOTAL PROTEIN 7.5 GM/DL (6.4-8.2)
== END ==
LOC: M LAB 12:05
PROVIDERS: ATTEND Internal Medicine
DX: I26.09 Other pulmonary embolism with acute cor pulmonale (principal)

== ENCOUNTER → 2021-02-03 | Outpatient (REF) | payer BC | LOC: M LAB REF 17:22 | PROVIDERS: ATTEND Dermatology | DX: D48.1 Neoplasm of uncertain behavior of connective and other soft tissue (principal); D22.5 Melanocytic nevi of trunk ==

== ENCOUNTER → 2022-11-16 | Outpatient (CLI) | payer OTHER | LOC: M PAIN 16:00 | PROVIDERS: ATTEND Anesthesiology | DX: M79.18 Myalgia, other site (principal); M54.6 Pain in thoracic spine; M54.12 Radiculopathy, cervical region; G89.29 Other chronic pain; F32.A Depression, unspecified; Z86.711 Personal history of pulmonary embolism; Z91.040 Latex allergy status ==

== ENCOUNTER → 2022-11-22 | Outpatient (CLI) | payer OTHER ==
[~2022-11-22] MED LIST changes: +TRIAMCINOLONE ACETONIDE SUSP 40MG/ML 1ML VIAL As Ordered ONE
== END ==
LOC: M PAIN 11:30
PROVIDERS: ATTEND Anesthesiology
DX: M79.18 Myalgia, other site (principal); F32.A Depression, unspecified; Z86.711 Personal history of pulmonary embolism; Z79.01 Long term (current) use of anticoagulants; Z79.899 Other long term (current) drug therapy; Z91.040 Latex allergy status
CPT/HCPCS: 20552; 71045; J0665; J3301

== ENCOUNTER → 2022-12-10 | Outpatient (CLI) | payer OTHER ==
[~2022-12-10] MED LIST changes: -TRIAMCINOLONE ACETONIDE SUSP 40MG/ML 1ML VIAL As Ordered ONE
== END ==
LOC: M PAIN 09:30
PROVIDERS: ATTEND Anesthesiology
DX: M79.18 Myalgia, other site (principal); M54.6 Pain in thoracic spine; F32.A Depression, unspecified; Z86.711 Personal history of pulmonary embolism; Z79.01 Long term (current) use of anticoagulants; Z79.899 Other long term (current) drug therapy; Z91.040 Latex allergy status

== ENCOUNTER → 2022-12-11 | Outpatient (CLI) | payer OTHER ==
[~2022-12-11] MED LIST changes: +TRIAMCINOLONE ACETONIDE SUSP 40MG/ML 1ML VIAL As Ordered ONE
== END ==
LOC: M PAIN 10:15
PROVIDERS: ATTEND Anesthesiology
DX: M79.18 Myalgia, other site (principal); F32.A Depression, unspecified; Z86.711 Personal history of pulmonary embolism; Z79.01 Long term (current) use of anticoagulants; Z79.899 Other long term (current) drug therapy; Z91.040 Latex allergy status
CPT/HCPCS: 20552; J0665; J3301

== ENCOUNTER → 2023-01-02 | Outpatient (CLI) | payer OTHER ==
[~2023-01-02] MED LIST changes: -TRIAMCINOLONE ACETONIDE SUSP 40MG/ML 1ML VIAL As Ordered ONE
== END ==
LOC: M PAIN 17:00
PROVIDERS: ATTEND Anesthesiology
DX: Z53.8 Procedure and treatment not carried out for other reasons (principal)

== ENCOUNTER → 2023-01-03 | Outpatient (CLI) | payer OTHER ==
[~2023-01-03] MED LIST changes: +TRIAMCINOLONE ACETONIDE SUSP 40MG/ML 1ML VIAL As Ordered ONE
== END ==
LOC: M PAIN 11:00
PROVIDERS: ATTEND Anesthesiology
DX: M79.18 Myalgia, other site (principal); M54.6 Pain in thoracic spine; Z86.718 Personal history of other venous thrombosis and embolism; F32.A Depression, unspecified; Z79.01 Long term (current) use of anticoagulants; Z79.899 Other long term (current) drug therapy; Z91.040 Latex allergy status
CPT/HCPCS: 20552; J0665; J3301

== ENCOUNTER → 2023-01-25 | Outpatient (CLI) | payer OTHER ==
[~2023-01-25] MED LIST changes: -TRIAMCINOLONE ACETONIDE SUSP 40MG/ML 1ML VIAL As Ordered ONE
== END ==
LOC: M PAIN 15:15
PROVIDERS: ATTEND Anesthesiology
DX: M79.18 Myalgia, other site (principal); F32.A Depression, unspecified; Z86.711 Personal history of pulmonary embolism; Z79.01 Long term (current) use of anticoagulants; Z79.899 Other long term (current) drug therapy; Z91.040 Latex allergy status

== ENCOUNTER 2023-08-12 08:12 | Day surgery (SDC) | payer OTHER ==
[~2023-08-12] VITALS: Ht 180.3 cm; Wt 77.0 kg
[2023-08-12] MEDS: NS 1,000 ML IV ONE (08:22)
[2023-08-12] MEDS ORDERED: LIDOCAINE 2% 100MG/5ML SDV (FOR ANES.) As Ordered ONE (08:53)
[2023-08-12] MEDS ORDERED: propofoL 200 MG/20 ML VIAL As Ordered ONE (08:53)
[2023-08-12 09:53] VITALS: BP 129/78; TEMP 96.8; O2SAT 100
== END 2023-08-12 09:45 | disposition home or self-care (01) ==
LOC: M OPP 08:12
PROVIDERS: ATTEND Internal Medicine Gastroenterology
DX: Z12.11 Encounter for screening for malignant neoplasm of colon (principal); Z12.12 Encounter for screening for malignant neoplasm of rectum; K64.0 First degree hemorrhoids; K63.5 Polyp of colon; K57.30 Diverticulosis of large intestine without perforation or abscess without bleeding; Z86.718 Personal history of other venous thrombosis and embolism; Z79.01 Long term (current) use of anticoagulants; Z79.899 Other long term (current) drug therapy; F32.A Depression, unspecified; Z91.040 Latex allergy status

== ENCOUNTER → 2024-06-08 | Outpatient (CLI) | payer OTHER | LOC: M RAD 09:36 | PROVIDERS: ATTEND Internal Medicine | DX: S86.811A Strain of other muscle(s) and tendon(s) at lower leg level, right leg, initial encounter (principal); M25.461 Effusion, right knee; M70.41 Prepatellar bursitis, right knee; S83.241A Other tear of medial meniscus, current injury, right knee, initial encounter ==

== ENCOUNTER → 2024-08-03 | Outpatient (CLI) | payer OTHER | LOC: M RAD 14:42 | PROVIDERS: ATTEND Internal Medicine | DX: M79.604 Pain in right leg (principal); I82.512 Chronic embolism and thrombosis of left femoral vein ==

== ENCOUNTER → 2025-02-09 | Outpatient (CLI) | payer OTHER | LOC: M CLY 14:51 | PROVIDERS: ATTEND Internal Medicine | DX: M54.9 Dorsalgia, unspecified (principal) ==

== ENCOUNTER → 2025-02-17 | Outpatient (CLI) | payer OTHER | LOC: M PLAIMG 13:40 | PROVIDERS: ATTEND Internal Medicine | DX: M54.30 Sciatica, unspecified side (principal) ==